=== PATIENT | male | born 1950 | race Caucasian/White ===

== ENCOUNTER 2019-02-06 11:19 | Inpatient (IN) | payer OTHER ==
[~2019-02-06] VITALS: Ht 175.3 cm; Wt 91.1 kg
[~2019-02-06 11:19] MED LIST changes: -CARV25 PO; +CARV3.125 PO; -ELIQUIS5 MG PO; -Hair, Skin & N1 EACH PO; -PANT40 PO
[2019-02-06] MEDS ORDERED: ELIQUIS5 MG PO (11:59)
[2019-02-06 12:17] LABS: International Normalized Ratio 1.05; Prothrombin Time Results 11.1 Sec (9.7-11.5)
[2019-02-06] MEDS ORDERED: Hair, Skin & N1 EACH PO (14:28)
[2019-02-06 15:26] LABS: Hematocrit 19.8 % (37.0-53.0); Hemoglobin 6.4 g/dL (13.5-17.5)
--- NOTE | 2019-02-06 16:11 | NUR ---
ARRIVAL TO UNIT Assumed care of pt upon arrival to unit at 1350. Telephone report received from Xiomara KERR prior to pt arrival. Pt transferred from ED gurney to ICU bed with SBA. Pt reports dizziness with activity, but not at rest. O2 sats 90% or greater RA. Pt denies nausea. No BM since arrival to unit.
--- NOTE | 2019-02-06 18:18 | NUR ---
SHIFT SUMMARY No acute changes since admission assessment. Pt has completed 2 units of plasma and 1 unit PRBCs, tolerating well. Dr Sonali Fine in to see pt this afternoon. Provider aware of most recent H&H results. Plan to transfuse additional unit PRBCs. Protonix gtt infusing. D5 1/2 NS with 20 meq K+ not infusing until completion of blood due to low EF on most recent echocardiogram. Pt remains on room air. Lungs clear to auscultation. Will continue to closely monitor until care handoff and bedside report with oncoming RN.
--- NOTE | 2019-02-06 22:46 | NUR ---
MD CANALES AT BEDSIDE W/ ORDERS FOR PT TO HAVE CLEAR LIQUIDS ONLY AT THIS TIME AND FOR BREAKFAST TOMORROW AM. AFTER BREAKFAST PT TO HAVE WATER AND ICE ONLY UNTIL NPO @ 1300 FOR POTENTIAL SCOPE.
[2019-02-07 04:27] LABS: Hematocrit 25.5 % (37.0-53.0); Hemoglobin 8.6 g/dL (13.5-17.5)
[2019-02-07 04:28] LABS: BASOPHILS ABSOLUTE AUTO 0.03 K/mm3 (0.00-0.23); BASOPHILS PERCENT AUTO 1 % (0-2); EOSINOPHILS ABSOLUTE AUTO 0.28 K/mm3 (0.00-0.68); EOSINOPHILS PERCENT AUTO 5 % (0-6); Hematocrit 25.5 % (37.0-53.0); Hemoglobin 8.5 g/dL (13.5-17.5); IMMATURE GRAN ABSOLUTE AUTO 0.08 K/mm3 (0.00-0.10); IMMATURE GRAN PERCENT AUTO 1 % (0-1); LYMPHOCYTES ABSOLUTE AUTO 1.49 K/mm3 (0.84-5.20); LYMPHOCYTES PERCENT AUTO 24 % (21-46); MONOCYTES ABSOLUTE AUTO 0.64 K/mm3 (0.16-1.47); MONOCYTES PERCENT AUTO 10 % (4-13); Mean Corpuscular HGB 32.3 pg (26.0-34.0); Mean Corpuscular HGB Conc 33.3 g/dL (31.5-36.5); Mean Corpuscular Volume 97 fL (80-100); Mean Platelet Volume 9.7 fL (9.1-12.4); NEUTROPHILS ABSOLUTE AUTO 3.76 K/mm3 (1.96-9.15); NEUTROPHILS PERCENT AUTO 60 % (41-73); Platelet Count 150 K/mm3 (150-400); RDW Coefficient Variation 15.8 % (11.7-14.2); Red Blood Cell Count 2.63 M/mm3 (4.30-5.90); White Blood Cell Count 6.28 K/mm3 (4.00-11.30)
[2019-02-07 04:34] LABS: Alanine Aminotransfer (ALT/SGP 22 U/L (12-78); Albumin/Globulin Ratio 1.1 (0.8-1.8); Alk Phos 66 U/L (50-136); Anion Gap 5 mmol/L (6-16); Aspartate Aminotrans (AST/SGOT 15 U/L (12-37); Bilirubin, Total 1.2 mg/dL (0.1-1.0); Blood Urea Nitrogen 21 mg/dL (8-24); Bun/Creatinine Ratio 24.5 (12.0-20.0); CO2, Blood 26 mmol/L (21-32); Chloride, Blood 112 mmol/L (98-108); Creatinine, Blood 0.86 mg/dL (0.60-1.20); Globulin, Blood 2.8 g/dL (2.2-4.0); Glomerular Filtration Rate >60 (60-); Glucose, Blood 86 mg/dL (70-99); Sodium, Blood 143 mmol/L (136-145); Total Protein, Blood 5.8 g/dL (6.4-8.2)
--- NOTE | 2019-02-07 05:32 | NUR ---
SHIFT SUMMARY PT A&0 X4, CALM AND COOPERATIVE. PT DENIES BLOODY BM THIS SHIFT. VSS. MONITOR SHOWS SB/NSR, HR 45-70. LUNG SOUNDS CLEAR, SPO2 > 92% ON RA. PROTONIX GTT INFUSING PER ORDERS. 1 UNIT PRBC'S AND 2 UNITS FFP ADMINISTERED THIS SHIFT W/ PT TOLERATING WELL. MD CANALES IN TO SEE PT THIS SHIFT W/ INSTRUCTIONS FOR PT TO BE CLEAR LIQUIDS ONLY NOW AND AT BREAKFAST FOLLOWED BY WATER AND ICE CHIPS ONLY AFTER BREAKFAST, AND NPO @ 1300 FOR SCOPE 02/07/19. PT IN BED W/ CALL LIGHT IN REACH ON BEDREST W/ SBA TO BSC. PT IN BED T/O SHIFT, USING URINAL. WILL CONTINUE TO MONITOR AND PROVIDE CARE UNTIL REPORT OFF TO DAY SHIFT RN.
--- NOTE | 2019-02-07 09:06 | NUR ---
PT AWAKENED EASILY AND IS A/O. PT DENIES PAIN OR DISTRESS JUST TIRED BACK FROM BEING IN THE BED. PT EXPRESSES NO SIGNS OF N/V OR STOOLING AT ALL SENCE HE CAME IN TO THE HOSPITAL. NEW IV REQUIRED AND CHANDGED TO RFA. PT FULLY AWARE AND REMINDED OF SCOPE AND PO STATUS.
[2019-02-07 10:23] LABS: Hematocrit 26.1 % (37.0-53.0); Hemoglobin 8.6 g/dL (13.5-17.5)
--- NOTE | 2019-02-07 12:25 | NUR ---
PT RESTING QUIETLY. VSS. SOME ARRYTHMIAS NOTED WHILE PT SLEEPING W/O ANY SYMPTOMS. PT IS TO BE NPO AFTER 1300.
[2019-02-07 16:44] LABS: Hematocrit 25.4 % (37.0-53.0); Hemoglobin 8.4 g/dL (13.5-17.5)
--- NOTE | 2019-02-07 17:24 | NUR ---
1710 DAY SURG. ON TO SET UP AND FOR ENDOSCOPE. PT HAS BEEN NPO FROM 1300 ON. VS HAVE BEEN STABLE NOTED.
--- NOTE | 2019-02-07 17:30 | NUR ---
02/07/19 [address] MACKENZIE
--- NOTE | 2019-02-07 18:35 | NUR ---
PT EGD COMPLETED AT 1750. PT VS STABLE. PROTONIX IV D/C. D51/2 20K AT 100ML TO COMPLETE. PT NOTES SOME ABD PRESSURE BUT LESS WITH PASSING OF GAS. PT IS A/O AND TOLERATED WELL OTHERWISE.
--- NOTE | 2019-02-08 05:58 | NUR ---
SHIFT SUMMARY PT HAS REMAINED AOX4 THROUGHOUT SHIFT. VSS. PLEASANT AND COOPERATIVE WITH CARE. PT CONTINUES TO USE URINAL INDEPENDENTLY AT THE BEDSIDE AND TOILET WITH STANDBY ASSISTANCE. PT HAS NO REPORTS OF DARK STOOLS THROUGHOUT THE NIGHT. DENIES PAIN. NO S/SX OF BLEEDING NOTED. PT HAS RESTED THROUGHOUT MUCH OF THE NIGHT, WAKING EASILY FOR CARE. NO OTHER CHANGES NOTED FROM INITIAL ASSESSMENT. WILL CONTINUE TO MONITOR AND REPORT TO ONCOMING SHIFT RN. BED IN LOW POSITION, CALL LIGHT IN REACH.
[2019-02-08 07:47] LABS: BASOPHILS ABSOLUTE AUTO 0.04 K/mm3 (0.00-0.23); BASOPHILS PERCENT AUTO 1 % (0-2); EOSINOPHILS ABSOLUTE AUTO 0.31 K/mm3 (0.00-0.68); EOSINOPHILS PERCENT AUTO 5 % (0-6); Hematocrit 24.2 % (37.0-53.0); IMMATURE GRAN ABSOLUTE AUTO 0.08 K/mm3 (0.00-0.10); IMMATURE GRAN PERCENT AUTO 1 % (0-1); LYMPHOCYTES ABSOLUTE AUTO 1.43 K/mm3 (0.84-5.20); LYMPHOCYTES PERCENT AUTO 22 % (21-46); MONOCYTES ABSOLUTE AUTO 0.57 K/mm3 (0.16-1.47); MONOCYTES PERCENT AUTO 9 % (4-13); Mean Corpuscular HGB 32.7 pg (26.0-34.0); Mean Corpuscular HGB Conc 33.1 g/dL (31.5-36.5); Mean Corpuscular Volume 99 fL (80-100); Mean Platelet Volume 9.4 fL (9.1-12.4); NEUTROPHILS ABSOLUTE AUTO 4.18 K/mm3 (1.96-9.15); NEUTROPHILS PERCENT AUTO 63 % (41-73); NRBC ABSOLUTE 0.02 K/mm3 (0.00-0.02); NRBC Auto 0.3 /100 WBC (0.0-0.2); Platelet Count 173 K/mm3 (150-400); RDW Coefficient Variation 15.9 % (11.7-14.2); RDW Standard Deviation 55.2 fL (35.1-46.3); Red Blood Cell Count 2.45 M/mm3 (4.30-5.90); White Blood Cell Count 6.61 K/mm3 (4.00-11.30)
[2019-02-08 08:09] LABS: Anion Gap 4 mmol/L (6-16); Blood Urea Nitrogen 14 mg/dL (8-24); Bun/Creatinine Ratio 16.8 (12.0-20.0); CO2, Blood 27 mmol/L (21-32); Chloride, Blood 111 mmol/L (98-108); Creatinine, Blood 0.83 mg/dL (0.60-1.20); Glomerular Filtration Rate >60 (60-); Glucose, Blood 109 mg/dL (70-99); Potassium, Blood 4.3 mmol/L (3.5-5.5); Sodium, Blood 142 mmol/L (136-145)
--- NOTE | 2019-02-08 10:28 | NUR ---
PT DENIES PAIN OR ANY EVIDENCE OF GI BLEEDING LAST NOC. PT VSS. TOLERATING PO MEDS AND LIQUIDS W/O N/V OR DISTRESS. IV SL.
[2019-02-08] MEDS ORDERED: PANT40 PO (13:54)
--- NOTE | 2019-02-08 16:05 | NUR ---
PT DISCHARGE TO [facility] VIA W/C. INSTRUCTION, RX AND F/U APPOINTMENT INSTRUCTIONS GIVEN. IV REMOVED INTACT AND PT W/O CURRNET S/S. LATE ENTRY: PT HAD RED BLOOD NOTED ON TP WITH SOME OLD BLACK/GREEN STOOL. DR CANALES CALLED AND AWARE W/O ORDER CHANGE AND WILL CONTINUE DISCHARGE PROCESS.
== END 2019-02-08 16:00 | disposition home or self-care (01) | DRG 379 ==
LOC: ER 11:19 → ICUW 11:20
PROVIDERS: Emergency Medicine; Family Medicine; ADMIT Family Medicine
PROC: 30233N1 Transfusion of Nonautologous Red Blood Cells into Peripheral Vein, Percutaneous Approach (ICD-10-PCS; principal; 2019-02-06)
PROC: 0DJ08ZZ Inspection of Upper Intestinal Tract, Via Natural or Artificial Opening Endoscopic (ICD-10-PCS; 2019-02-07)
DX: K92.2 Gastrointestinal hemorrhage, unspecified (principal); I25.10 Atherosclerotic heart disease of native coronary artery without angina pectoris; I25.5 Ischemic cardiomyopathy; I10 Essential (primary) hypertension; E78.5 Hyperlipidemia, unspecified; Z79.82 Long term (current) use of aspirin; I25.2 Old myocardial infarction; Z95.5 Presence of coronary angioplasty implant and graft; Z87.891 Personal history of nicotine dependence; D12.6 Benign neoplasm of colon, unspecified; K44.9 Diaphragmatic hernia without obstruction or gangrene; I48.0 Paroxysmal atrial fibrillation; T39.015A Adverse effect of aspirin, initial encounter; Y92.9 Unspecified place or not applicable; D64.9 Anemia, unspecified
CPT/HCPCS: 36415; 36430; 80048; 80053; 82272; 85014; 85018; 85025; 85610; 85730; 86850; 86900; 86901; 86923; 93005; 93010; 99285-25; C9113; J2704; J7120; P9016; P9059

== ENCOUNTER → 2019-02-06 | Outpatient (CLI) | payer OTHER ==
[~2019-02-06] MED LIST: ASCO500 PO; ATOR40TA PO; B-12500 MCG PO; CARV25 PO; ELIQUIS5 MG PO; FOLI1 PO; Ferrous Sulfat325 M2 PO; Hair, Skin & N1 EACH PO; LISI20 PO; LO-DOSE ASPIRIN81 MG PO; PANT40 PO; XARELTO20 MG PO
[2019-02-06 10:22] LABS: BASOPHILS ABSOLUTE AUTO 0.06 K/mm3 (0.00-0.23); BASOPHILS PERCENT AUTO 1 % (0-2); EOSINOPHILS ABSOLUTE AUTO 0.48 K/mm3 (0.00-0.68); EOSINOPHILS PERCENT AUTO 5 % (0-6); Hematocrit 20.6 % (37.0-53.0); Hemoglobin 7.1 g/dL (13.5-17.5); IMMATURE GRAN ABSOLUTE AUTO 0.14 K/mm3 (0.00-0.10); IMMATURE GRAN PERCENT AUTO 1 % (0-1); LYMPHOCYTES ABSOLUTE AUTO 1.84 K/mm3 (0.84-5.20); LYMPHOCYTES PERCENT AUTO 18 % (21-46); MONOCYTES ABSOLUTE AUTO 0.73 K/mm3 (0.16-1.47); MONOCYTES PERCENT AUTO 7 % (4-13); Mean Corpuscular HGB 33.5 pg (26.0-34.0); Mean Corpuscular HGB Conc 34.5 g/dL (31.5-36.5); Mean Corpuscular Volume 97 fL (80-100); Mean Platelet Volume 10.2 fL (9.1-12.4); NEUTROPHILS ABSOLUTE AUTO 6.81 K/mm3 (1.96-9.15); NEUTROPHILS PERCENT AUTO 68 % (41-73); Platelet Count 207 K/mm3 (150-400); RDW Standard Deviation 47.8 fL (35.1-46.3); Red Blood Cell Count 2.12 M/mm3 (4.30-5.90); White Blood Cell Count 10.06 K/mm3 (4.00-11.30)
[2019-02-06 10:36] LABS: Alanine Aminotransfer (ALT/SGP 22 U/L (12-78); Alk Phos 67 U/L (40-126); Anion Gap 8 mmol/L (6-16); Aspartate Aminotrans (AST/SGOT 17 U/L (12-37); Bilirubin, Total 0.4 mg/dL (0.1-1.0); Blood Urea Nitrogen 33 mg/dL (8-24); Bun/Creatinine Ratio 29.2 (12.0-20.0); CO2, Blood 23 mmol/L (21-32); Calcium, Blood 8.3 mg/dL (8.5-10.1); Chloride, Blood 105 mmol/L (98-108); Creatinine, Blood 1.13 mg/dL (0.60-1.20); Globulin, Blood 2.9 g/dL (2.2-4.0); Glomerular Filtration Rate >60 (60-); Glucose, Blood 110 mg/dL (70-99); Potassium, Blood 4.2 mmol/L (3.5-5.5); Sodium, Blood 136 mmol/L (136-145); Total Protein, Blood 5.9 g/dL (6.4-8.2)
[2019-02-06 10:40] LABS: Troponin I <0.017 ng/mL (0.000-0.040)
== END | disposition home or self-care (01) ==
LOC: LAB SHORT 10:17 → LAB EV 10:17
PROVIDERS: Family Medicine
DX: I95.9 Hypotension, unspecified (principal)
CPT/HCPCS: 80053; 84484; 85025

== ENCOUNTER 2019-02-09 16:27 | Inpatient (IN) | payer OTHER ==
[~2019-02-09] VITALS: Ht 175.3 cm; Wt 93.5 kg
[~2019-02-09 16:27] MED LIST changes: +ELIQUIS5 MG PO; +Hair, Skin & N1 EACH PO; +PANT40 PO
[2019-02-09 17:51] LABS: BASOPHILS ABSOLUTE AUTO 0.04 K/mm3 (0.00-0.23); BASOPHILS PERCENT AUTO 0 % (0-2); EOSINOPHILS ABSOLUTE AUTO 0.32 K/mm3 (0.00-0.68); EOSINOPHILS PERCENT AUTO 3 % (0-6); Hematocrit 22.2 % (37.0-53.0); Hemoglobin 7.1 g/dL (13.5-17.5); IMMATURE GRAN ABSOLUTE AUTO 0.09 K/mm3 (0.00-0.10); IMMATURE GRAN PERCENT AUTO 1 % (0-1); LYMPHOCYTES ABSOLUTE AUTO 1.21 K/mm3 (0.84-5.20); LYMPHOCYTES PERCENT AUTO 12 % (21-46); MONOCYTES ABSOLUTE AUTO 0.76 K/mm3 (0.16-1.47); MONOCYTES PERCENT AUTO 8 % (4-13); Mean Corpuscular HGB 32.3 pg (26.0-34.0); Mean Corpuscular Volume 101 fL (80-100); Mean Platelet Volume 10.3 fL (9.1-12.4); NEUTROPHILS ABSOLUTE AUTO 7.43 K/mm3 (1.96-9.15); NEUTROPHILS PERCENT AUTO 76 % (41-73); Platelet Count 235 K/mm3 (150-400); RDW Coefficient Variation 15.9 % (11.7-14.2); RDW Standard Deviation 56.3 fL (35.1-46.3); White Blood Cell Count 9.85 K/mm3 (4.00-11.30)
[2019-02-09 18:04] LABS: Alanine Aminotransfer (ALT/SGP 28 U/L (12-78); Albumin, Blood 3.1 g/dL (3.4-5.0); Albumin/Globulin Ratio 1.1 (0.8-1.8); Alk Phos 68 U/L (50-136); Anion Gap 8 mmol/L (6-16); Aspartate Aminotrans (AST/SGOT 18 U/L (12-37); Bilirubin, Total 0.4 mg/dL (0.1-1.0); Blood Urea Nitrogen 36 mg/dL (8-24); Bun/Creatinine Ratio 32.4 (12.0-20.0); CO2, Blood 24 mmol/L (21-32); Calcium, Blood 8.3 mg/dL (8.5-10.1); Chloride, Blood 107 mmol/L (98-108); Creatinine, Blood 1.11 mg/dL (0.60-1.20); Globulin, Blood 2.9 g/dL (2.2-4.0); Glomerular Filtration Rate >60 (60-); Glucose, Blood 120 mg/dL (70-99); Potassium, Blood 4.3 mmol/L (3.5-5.5); Sodium, Blood 139 mmol/L (136-145)
[2019-02-09 19:06] LABS: International Normalized Ratio 1.04
--- NOTE | 2019-02-09 22:30 | NUR ---
BLOOD TRANSFUSION COMPLETE PT TOLERATED WELL. NO S/SX OF ADVERSE EFFECTS. PT IS BRADYCARDIC AT 55, BUT PT WAS BRADYCARDIC UPON ARRIVAL TO ED. AFEBRILE. LUNG SOUNDS ARE CLEAR. OXYGEN SATURATIONS 99% ON RA. WILL PLACE ORDER TO REDRAW H&H IN ONE HOUR.
--- NOTE | 2019-02-09 23:10 | NUR ---
ASSUMED PT CARE AT 2025 PT ALERT AND ORIENTED UPON ARRIVAL TO UNIT; STAND PIVOT TRANSFER TO BED. FIRST UNIT OF PRBC'S TRANSFUSING UPON ARRIVAL WITH PROTONIX GTT AT 10MLS/HR. BP 99/49; HR 63; TEMP 98.4; RR 15; OXYGEN SATURATIONS 100% RA. LUNG SOUNDS CLEAR T/O. PT DENIES ANY ITCHINESS, SOB, WELL FEELING FLUSHED. BLOOD TRANSFUSING AT A RATE OF 150MLS/HR. CALL LIGHT LEFT WITHIN REACH; PT ABLE TO MAKE HIS NEEDS KNOWN.
[2019-02-09 23:46] LABS: Hematocrit 22.5 % (37.0-53.0); Hemoglobin 7.4 g/dL (13.5-17.5)
--- NOTE | 2019-02-10 00:31 | NUR ---
CALL TO DR. DAVIS UPDATED REGARDING HGB FROM 7.1 TO 7.4 AFTER ONE UNIT OF PRBC'S. UPDATED REGARDING BLOOD PRESSURES WITH MAP'S AROUND 60 AND HR LOW 40. NEW ORDERS TO TRANSFUSE ANOTHER UNIT OF PRBC'S.
[2019-02-10 05:00] LABS: BASOPHILS ABSOLUTE AUTO 0.03 K/mm3 (0.00-0.23); BASOPHILS PERCENT AUTO 0 % (0-2); EOSINOPHILS ABSOLUTE AUTO 0.46 K/mm3 (0.00-0.68); EOSINOPHILS PERCENT AUTO 6 % (0-6); Hematocrit 23.1 % (37.0-53.0); Hemoglobin 7.7 g/dL (13.5-17.5); IMMATURE GRAN ABSOLUTE AUTO 0.08 K/mm3 (0.00-0.10); IMMATURE GRAN PERCENT AUTO 1 % (0-1); LYMPHOCYTES PERCENT AUTO 19 % (21-46); MONOCYTES ABSOLUTE AUTO 0.58 K/mm3 (0.16-1.47); MONOCYTES PERCENT AUTO 8 % (4-13); Mean Corpuscular HGB 32.4 pg (26.0-34.0); Mean Corpuscular HGB Conc 33.3 g/dL (31.5-36.5); Mean Platelet Volume 9.6 fL (9.1-12.4); NEUTROPHILS ABSOLUTE AUTO 4.82 K/mm3 (1.96-9.15); NEUTROPHILS PERCENT AUTO 65 % (41-73); NRBC ABSOLUTE 0.02 K/mm3 (0.00-0.02); NRBC Auto 0.3 /100 WBC (0.0-0.2); Platelet Count 170 K/mm3 (150-400); RDW Coefficient Variation 15.6 % (11.7-14.2); RDW Standard Deviation 52.4 fL (35.1-46.3); Red Blood Cell Count 2.38 M/mm3 (4.30-5.90); White Blood Cell Count 7.37 K/mm3 (4.00-11.30)
[2019-02-10 05:01] LABS: Mean Corpuscular Volume 97 fL (80-100)
--- NOTE | 2019-02-10 05:07 | NUR ---
END OF SHIFT SUMMARY PT HAS REMAINED ALERT AND ORIENTED; ABLE TO COMMUNICATE NEEDS. PT HAS RECEIVED TWO UNITS OF PRBC'S; HGB WENT FROM 7.1 TO 7.7. NS INFUSING AT 75MLS/HR. PROTONIX GTT AT 10MLS/HR. BLOOD PRESSURES HAVE REMAINED ON THE LOW SIDE, BUT MAP'S HAVE BEEN 60 AND GREATER. HR HAS BEEN 60''-70'S WHEN AWAKE AND DROP TO THE 40-50'S WHEN SLEEPING; PT DID GET LOW 38; ASYMPTOMATIC. QT INTERVAL NOTED TO BE PROLONGED AT 0.46, BUT APPEARS THAT WAS HIS BASELINE FROM PRIOR ADMIT A COUPLE DAYS AGO. PT DENIES ANY PAIN OR DISCOMFORT TO ABDOMEN; HYPOACTIVE TONES NOTED. NO BM'S THIS SHIFT. PT ABLE TO REPOSITION SELF IN BED. CALL LIGHT AND PHONE LEFT WITHIN REACH. WILL CONTINUE TO MONITOR UNTIL REPORT IS HANDED OFF TO DAY RN.
[2019-02-10 05:17] LABS: Anion Gap 6 mmol/L (6-16); Blood Urea Nitrogen 28 mg/dL (8-24); Bun/Creatinine Ratio 32.5 (12.0-20.0); CO2, Blood 25 mmol/L (21-32); Calcium, Blood 7.6 mg/dL (8.5-10.1); Chloride, Blood 111 mmol/L (98-108); Creatinine, Blood 0.86 mg/dL (0.60-1.20); Glomerular Filtration Rate >60 (60-); Glucose, Blood 90 mg/dL (70-99); Magnesium, Blood 2.3 mg/dL (1.6-2.4); Potassium, Blood 3.9 mmol/L (3.5-5.5); Sodium, Blood 142 mmol/L (136-145)
--- NOTE | 2019-02-10 07:56 | NUR ---
INITIAL ASSESSMENT PATIENT ALERT AND ORIENTED, AFEBRILE. PATIENT DENIES PAIN OR DISCOMFORT AT THIS TIME. PATIENT SATTING 90% AND GREATER ON RA. LUNGS CLEAR T/O. PATIENT IN SB TO SR, HR 50S TO 60S. QT PROLONGATION NOTED. BP STABLE. SCDS IN PLACE. ABDOMEN MODERATELY DISTENDED, PATIENT STATES NORMAL. HYPERACTIVE BS NOTED. PATIENT ON CLEAR LIQUID DIET. WNL- PATIENT USING URINAL. PATIENT HAS TRACE EDEMA TO LOWER EXTREMITIES. NO SKIN ISSUES NOTED. NS INFUSING AT 75 MLS/ HOUR, PROTONIX INFUSING AT 10 MLS/ HOUR. BED LOW, CALL LIGHT IN REACH. WILL CONTINUE TO MONITOR PATIENT FREQUENTLY THROUGHOUT SHIFT.
--- NOTE | 2019-02-10 10:15 | NUR ---
PATIENT TAKEN TO [facility] FOR RED TAG STUDY. ON TELE.
--- NOTE | 2019-02-10 11:26 | NUR ---
PATIENT BACK FROM RED TAG STUDY.
--- NOTE | 2019-02-10 11:41 | NUR ---
PATIENT RESTING QUIETLY IN BED. PATIENT DENIES PAIN OR DISCOMFORT. PATIENT AFEBRILE. PATIENT REMAINS SATTING 90% AND GREATER ON RA. PATIENT REMAINS IN SB/ SR, HR 50S TO 60S WITH PROLONGED QT INTERVAL. BP STABLE. ABDOMEN REMAINS MODERATELY DISTENDED, SOFT, WITH HYPERACTIVE BS. PATIENT CURRENTLY NPO EXCEPT FOR MEDS PER DR. BURKS. PATIENT VOIDING INTO URINAL WITH NO PROBLEMS NOTED. NO CHANGE TO SKIN. PATIENT HAD RED TAG STUDY. NO OTHER ACUTE CHANGES TO NOTE ON AT THIS TIME. VISITOR IN ROOM WITH PATIENT AT THIS TIME. WILL CONTINUE TO MONITOR.
--- NOTE | 2019-02-10 14:25 | NUR ---
02/10/19 1424 Mu [place] Bite Block Placed3-LEAD EKG REVIEWED WITH PHYSICIAN PRIOR TO START OF PROCEDURE.Patient to ENDO 1History, Chart, Medications and Allergies reviewed before start of procedure.MONITOR INTACT WITH CONTINUOUS PULSE OXIMETRY AND INTERMITTENT BP.O2 VIA N/C INTACT THROUGHOUT SEDATION/PROCEDURE.See Anesthesia record
--- NOTE | 2019-02-10 16:34 | NUR ---
PATIENT RESTING IN BED QUIETLY. PATIENT AFEBRILE. PATIENT STATES THAT HE HAS BEEN HAVING GAS AND SOME ABDOMINAL DISCOMFORT SINCE SCOPE. PATIENT STATES THAT IT IS MANAGEABLE AT THIS TIME. PATIENT GIVEN PRN ZOFRAN OT FOR COMPLAINT OF NAUSEA. PATIENT REMAINS SATTING 90% AND GREATER ON RA. PATIENT IN SB, HR 40S TO 50S. BP STABLE. NO OTHER ACUTE CHANGES TO NOTE ON AT THIS TIME. WILL CONTINUE TO MONITOR.
--- NOTE | 2019-02-10 18:00 | NUR ---
SHIFT SUMMARY PATIENT REMAINED ALERT AND ORIENTED, AFEBRILE. PATIENT HAD NO COMPLAINTS OF PAIN UNTIL AFTER SCOPE, THEN COMPLAINED OF ABDOMINAL DISCOMFORT BUT STATED IT WAS MANAGEABLE. PATIENT SBA FOR COMPLAINTS OF DIZZINESS WITH STANDING. PATIENT REMAINED SATTING WELL ON RA. LUNGS CLEAR THROUGHOUT. PATIENT REMAINED SB TO SR, HR 40S TO 60S. BP ON SOFT SIDE DURING SCOPE, OTHERWISE STABLE. PATIENT HAD NO ACTIVE BLEEDING THIS SHIFT. PATIENT GIVEN PRN ZOFRAN OT FOR COMPLAINT OF NAUSEA AFTER SCOPE. WNL. NO CHANGE IN SKIN. NS KCL INFUSING AT 50 MLS/ HOUR. REPORT GIVEN TO ASSUMING PCU NURSE.
--- NOTE | 2019-02-10 18:35 | NUR ---
PT TRANSFERRED TO UNIT FROM ICU. PT ALERT AND ORIENTED. VS STABLE. PT ABLE TO TRANSFER TO BED WITH SBA. 02 SATS >90% ON RA. EGD DONE TODAY AND PT REPORTS MILD NAUSEA SINCE SCOPE. NS WITH KCL INFUSING PER ORDERS. WILL CONTINUE TO MONITOR AND REPORT TO ONCOMING RN. CALL LIGHT IN REACH.
[2019-02-10 19:49] LABS: Hematocrit 25.6 % (37.0-53.0); Hemoglobin 8.3 g/dL (13.5-17.5)
[2019-02-11 03:47] LABS: Hematocrit 21.9 % (37.0-53.0); Hemoglobin 7.1 g/dL (13.5-17.5)
[2019-02-11 03:57] LABS: Albumin, Blood 2.4 g/dL (3.4-5.0); Anion Gap 5 mmol/L (6-16); Blood Urea Nitrogen 18 mg/dL (8-24); Bun/Creatinine Ratio 22.2 (12.0-20.0); CO2, Blood 26 mmol/L (21-32); Calcium, Blood 7.5 mg/dL (8.5-10.1); Chloride, Blood 113 mmol/L (98-108); Creatinine, Blood 0.81 mg/dL (0.60-1.20); Glomerular Filtration Rate >60 (60-); Glucose, Blood 85 mg/dL (70-99); Phosphorus, Blood 3.3 mg/dL (2.5-4.9); Potassium, Blood 3.9 mmol/L (3.5-5.5); Sodium, Blood 144 mmol/L (136-145)
--- NOTE | 2019-02-11 05:35 | NUR ---
SHIFT SUMMARY LYING IN LOW FOWLERS WITH EYES CLOSED. RESTED WELL, STATES THAT HE FEELS BETTER. DENIES FURTHER NEEDS OR WANTS AT THIS TIME. SAFETY MEASURES IN PLACE. WILL GIVE HAND OFF TO ONCOMING SHIFT USING SBAR.
[2019-02-11 15:19] LABS: Hematocrit 26.9 % (37.0-53.0)
--- NOTE | 2019-02-11 19:25 | NUR ---
SHIFT SUMMARY PT RESTING IN BED THROUGHOUT THE DAY. VSS. ALERT AND ORIENTED X3. LUNG SOUNDS CLEAR, SINUS DENYS TO NSR RATE 50s-60s ON TELEMETRY. NUMBNESS TO BILATERAL FEET. PT RECEIVED 1 UNIT PRBC TODAY AND TOLERATED WELL. PT UP TO SIDE OF BED TO VOID, AMBULATED TO THE BATHROOM X1.
--- NOTE | 2019-02-11 19:45 | NUR ---
ASSUMED CARE PT. ALERT AND ORIENTED. ABLE TO REPOSITION SELF IN BED FOR COMFORT NEEDED. PT. VSS AT THIS TIME. PT. DENIES ANY PAIN OR DISCOMFORT. VSS. REFRESHMENTS AT BEDSIDE. CALL LIGHT IN REACH
[2019-02-11 20:22] LABS: Hemoglobin 8.7 g/dL (13.5-17.5)
[2019-02-12 05:25] LABS: Hematocrit 25.3 % (37.0-53.0); Hemoglobin 8.4 g/dL (13.5-17.5)
[2019-02-12 05:43] LABS: Albumin, Blood 2.5 g/dL (3.4-5.0); Anion Gap 5 mmol/L (6-16); Blood Urea Nitrogen 13 mg/dL (8-24); Bun/Creatinine Ratio 14.1 (12.0-20.0); CO2, Blood 27 mmol/L (21-32); Calcium, Blood 7.7 mg/dL (8.5-10.1); Chloride, Blood 110 mmol/L (98-108); Creatinine, Blood 0.92 mg/dL (0.60-1.20); Glomerular Filtration Rate >60 (60-); Glucose, Blood 89 mg/dL (70-99); Phosphorus, Blood 3.1 mg/dL (2.5-4.9); Sodium, Blood 142 mmol/L (136-145)
--- NOTE | 2019-02-12 05:49 | NUR ---
SHIFT SUMMARY PT SLEEPING T/O NIGHT. NO COMPLAINTS. NO ACUTE CHANGES T/O SHIFT. REPORT TO ONCOMING RN.
--- NOTE | 2019-02-12 10:22 | NUR ---
echocardiogram completed
[2019-02-12 14:30] LABS: Hematocrit 30.6 % (37.0-53.0); Hemoglobin 10.2 g/dL (13.5-17.5)
--- NOTE | 2019-02-12 19:41 | NUR ---
SHIFT SUMMARY PT RESTING IN BED THROUGHOUT THE DAY. VSS. ALERT AND ORIENTED X3. LUNG SOUNDS CLEAR, SINUS BRADYCARDIA TO NSR RATE 48-70s TODAY. TRACE EDEMA TO BLE. PT AMBULATED IN HALLWAY X2 TODAY AND TOLERATED WELL. DENIES PAIN AT THIS TIME. WILL CONTINUE TO MONITOR.
[2019-02-13 05:54] LABS: BASOPHILS ABSOLUTE AUTO 0.03 K/mm3 (0.00-0.23); BASOPHILS PERCENT AUTO 0 % (0-2); EOSINOPHILS ABSOLUTE AUTO 0.39 K/mm3 (0.00-0.68); EOSINOPHILS PERCENT AUTO 5 % (0-6); Hematocrit 27.3 % (37.0-53.0); Hemoglobin 9.1 g/dL (13.5-17.5); IMMATURE GRAN ABSOLUTE AUTO 0.02 K/mm3 (0.00-0.10); IMMATURE GRAN PERCENT AUTO 0 % (0-1); LYMPHOCYTES ABSOLUTE AUTO 1.32 K/mm3 (0.84-5.20); LYMPHOCYTES PERCENT AUTO 18 % (21-46); MONOCYTES ABSOLUTE AUTO 0.68 K/mm3 (0.16-1.47); MONOCYTES PERCENT AUTO 9 % (4-13); Mean Corpuscular HGB 32.4 pg (26.0-34.0); Mean Corpuscular HGB Conc 33.3 g/dL (31.5-36.5); Mean Corpuscular Volume 97 fL (80-100); Mean Platelet Volume 9.4 fL (9.1-12.4); NEUTROPHILS ABSOLUTE AUTO 5.01 K/mm3 (1.96-9.15); NEUTROPHILS PERCENT AUTO 67 % (41-73); Platelet Count 206 K/mm3 (150-400); RDW Coefficient Variation 15.1 % (11.7-14.2); RDW Standard Deviation 52.8 fL (35.1-46.3); Red Blood Cell Count 2.81 M/mm3 (4.30-5.90); White Blood Cell Count 7.45 K/mm3 (4.00-11.30)
--- NOTE | 2019-02-13 06:11 | NUR ---
SHIFT SUMMARY PT HAS REMAINED AOX4 THROUGHOUT SHIFT. VSS. PLEASANT AND COOPERATIVE WITH CARE. PT CONTINUES TO USE URINAL AT BEDSIDE INDEPENDENTLY. PT HAS DENIED BOWEL MOVEMENT THIS SHIFT. PT HAS RESTED WELL THROUGHOUT THE NIGHT, WAKING EASILY FOR CARE. PT HAS DENIED ABDOMINAL PAIN OR N/V. PT REQUESTING REMOVAL OF SCDS THIS AM AFTER WEARING THEM ALL NIGHT. PT EDUCATED ON VTE PREVENTION AND VERBALIZED UNDERSTANDING. NO OTHER CHANGES NOTED FROM INITIAL ASSESSMENT. WILL CONTINUE TO MONITOR AND REPORT TO ONCOMING SHIFT RN. BED IN LOW POSITION, CALL LIGHT IN REACH.
[2019-02-13 06:21] LABS: Albumin, Blood 2.6 g/dL (3.4-5.0); Anion Gap 4 mmol/L (6-16); Blood Urea Nitrogen 10 mg/dL (8-24); CO2, Blood 27 mmol/L (21-32); Chloride, Blood 109 mmol/L (98-108); Creatinine, Blood 0.83 mg/dL (0.60-1.20); Glomerular Filtration Rate >60 (60-); Glucose, Blood 93 mg/dL (70-99); Magnesium, Blood 2.3 mg/dL (1.6-2.4); Phosphorus, Blood 2.9 mg/dL (2.5-4.9); Sodium, Blood 140 mmol/L (136-145)
[2019-02-13 12:21] LABS: Hematocrit 30.3 % (37.0-53.0); Hemoglobin 9.8 g/dL (13.5-17.5)
[2019-02-13 16:01] LABS: Hematocrit 29.9 % (37.0-53.0); Hemoglobin 9.8 g/dL (13.5-17.5)
--- NOTE | 2019-02-13 16:28 | NUR ---
SHIFT SUMMARY PT RESTING IN BED THROUGHOUT THE DAY. VSS. ALERT AND ORIENTED X3. DENIES PAIN THROUGHOUT THE DAY. LUNG SOUNDS CLEAR, NSR RATE 72 ON TELEMETRY. TRACE EDEMA TO BLE, CHRONIC TINGLING TO BILATERAL FEET. PT AMBULATED INDEPENDENTLY AROUND UNIT WITHOUT PROBLEMS. PT TOLERATED REGULAR DIET WITH NO PAIN OR NAUSEA. WILL CONTINUE TO MONITOR.
[2019-02-13] MEDS ORDERED: PANT40 PO (18:05)
[2019-02-13] MEDS ORDERED: ENTRESTO 24 MG1 EACH PO (18:07)
--- NOTE | 2019-02-13 18:42 | NUR ---
DISCHARGE NOTE PT STABLE FOR DISCHARGE. POWERGLIDE REMOVED. DISCHARGE MEDICATIONS, DISCHARGE INSTRUCTIONS, AND MEDICATION EDUCATION PROVIDED TO PT. PT VERBALIZES UNDERSTANDING AND DENIES QUESTIONS. PT DISCHARGED VIA WHEELCHAIR TO WAITING CAR WITH BELONGINGS.
== END 2019-02-13 18:38 | disposition home or self-care (01) | DRG 378 ==
LOC: ER 16:27 → PCU 19:21 → ICUW 19:21 → ICUE 19:21 → UNDODEPER 21:13 → ICUE 02-10 17:03 → PCU 02-10 17:47
PROVIDERS: Emergency Medicine; Internal Medicine; Internal Medicine Gastroenterology; Nurse Practitioner Acute Care; ADMIT Internal Medicine
PROC: 30233N1 Transfusion of Nonautologous Red Blood Cells into Peripheral Vein, Percutaneous Approach (ICD-10-PCS; 2019-02-09)
PROC: 0D598ZZ Destruction of Duodenum, Via Natural or Artificial Opening Endoscopic (ICD-10-PCS; principal; 2019-02-10 14:30)
DX: K26.4 Chronic or unspecified duodenal ulcer with hemorrhage (principal); I50.22 Chronic systolic (congestive) heart failure; D62 Acute posthemorrhagic anemia; I25.10 Atherosclerotic heart disease of native coronary artery without angina pectoris; I25.5 Ischemic cardiomyopathy; I25.2 Old myocardial infarction; E78.5 Hyperlipidemia, unspecified; Z87.891 Personal history of nicotine dependence; I95.9 Hypotension, unspecified; I51.3 Intracardiac thrombosis, not elsewhere classified; E78.00 Pure hypercholesterolemia, unspecified; Z79.82 Long term (current) use of aspirin; I11.0 Hypertensive heart disease with heart failure
CPT/HCPCS: 36415; 36430; 78278; 80048; 80053; 80069; 82272; 83735; 83880; 85014; 85018; 85025; 85610; 85730; 86850; 86900; 86901; 86923; 93308; 93321; 96365; 99285-25; A9270; A9560; C1751; C9113; J1940; J2250; J2405; J2704; J3480; J7030; J7050; J7120; P9016

== ENCOUNTER 2019-10-09 05:43 | Day surgery (SDC) | payer OTHER ==
[~2019-10-09] VITALS: Ht 175.3 cm; Wt 93.0 kg
[~2019-10-09 05:43] MED LIST changes: +ENTRESTO 24 MG1 EACH PO
[2019-10-09] MEDS ORDERED: NITR.6SL SL (06:23)
[2019-10-09] MEDS ORDERED: ELIQUIS5 MG PO (06:23)
[2019-10-09] MEDS ORDERED: Aspir 8181 MG PO (09:01)
[2019-10-09] MEDS ORDERED: TICA90TA (09:01)
--- NOTE | 2019-10-09 14:04 | NUR ---
PT VERBALIZED UNDERSTANDING OF WRITTEN AND VERBAL D/C INST. TR BAND REMOVED FROM R WRIST. PUNCTURE AREA CLEANED WITH NS; CLOTH DOT DRNG PLACED; SPLINT REAPPLIED. IV REMOVED. PT TAKEN OUT OF THE [facility]ENTER VIA W/C.
== END 2019-10-09 14:20 | disposition home or self-care (01) ==
LOC: MHTC 05:43
PROC: B206YZZ Plain Radiography of Right and Left Heart using Other Contrast (ICD-10-PCS; principal; 2019-10-09)
PROC: 4A023N8 Measurement of Cardiac Sampling and Pressure, Bilateral, Percutaneous Approach (ICD-10-PCS; principal; 2019-10-09)
PROC: B201YZZ Plain Radiography of Multiple Coronary Arteries using Other Contrast (ICD-10-PCS; principal; 2019-10-09)
DX: I25.10 Atherosclerotic heart disease of native coronary artery without angina pectoris (principal); I25.5 Ischemic cardiomyopathy; T82.855A Stenosis of coronary artery stent, initial encounter; Y83.1 Surgical operation with implant of artificial internal device as the cause of abnormal reaction of the patient, or of later complication, without mention of misadventure at the time of the procedure; I25.2 Old myocardial infarction; E66.3 Overweight; F17.210 Nicotine dependence, cigarettes, uncomplicated; Z79.899 Other long term (current) drug therapy; Z79.01 Long term (current) use of anticoagulants; Z68.30 Body mass index [BMI] 30.0-30.9, adult
CPT/HCPCS: 85347; 93460; 99152; 99153; C1725; C1769; C1874; C1887; C1894; C9600; J1644; J2250; J3010; J7030; Q9967

== ENCOUNTER 2020-11-27 12:15 | Emergency (ER) | payer OTHER ==
[~2020-11-27] VITALS: Ht 175.3 cm; Wt 93.0 kg
[~2020-11-27 12:15] MED LIST changes: +Aspir 8181 MG PO; +NITR.6SL SL; +TICA90TA
[2020-11-27] MEDS ORDERED: ENTRESTO 97 MG1 EACH PO (15:36)
[2020-11-27] MEDS ORDERED: CLOP75 PO (15:38)
[2020-11-27] MEDS ORDERED: Ultram50 MG PO (18:04)
== END 2020-11-27 18:15 | disposition home or self-care (01) ==
LOC: ER 12:15
DX: S82.841A Displaced bimalleolar fracture of right lower leg, initial encounter for closed fracture (principal); I25.10 Atherosclerotic heart disease of native coronary artery without angina pectoris; I10 Essential (primary) hypertension; E78.5 Hyperlipidemia, unspecified; Z79.02 Long term (current) use of antithrombotics/antiplatelets; Z79.01 Long term (current) use of anticoagulants; W01.0XXA Fall on same level from slipping, tripping and stumbling without subsequent striking against object, initial encounter
CPT/HCPCS: 27810; 73600; 93005; 93010; 99152; 99283-25; J2704; J7030

== ENCOUNTER 2020-12-06 08:48 | Day surgery (SDC) | payer OTHER ==
[~2020-12-06] VITALS: Ht 175.3 cm; Wt 91.7 kg
[~2020-12-06 08:48] MED LIST changes: +CLOP75 PO; +ENTRESTO 97 MG1 EACH PO; +Ultram50 MG PO
[2020-12-06] MEDS ORDERED: MULTIPLE VITAM1 EACH PO (09:06)
--- NOTE | 2020-12-06 09:26 | NUR ---
History, Chart, Medications and Allergies reviewed before start of procedure. Patient confirms NPO status and agrees with scheduled surgery. PATIENT'S RLE IN SPLINT AND PLACED ON PILLOW TO ELEVATE. SPLINT LEFT INTACT, SO NO CLIP PREP OR CHLORHEXIDINE PREP DONE IN PRE-OP.
--- NOTE | 2020-12-06 12:25 | NUR ---
RLE ELEVATED ON PILLOW. YOGI WRAP INTACT WITH TOES VISILBE. PATIENT DENIES NUMBNESS OR TINGLING TO RLE. TOES PINK IN COLOR WITH CAP REFILL GREATER THAN 3 SECONDS, BUT EQUAL TO LLE WHEN COMPARED. PATEINT ABLE TO WIGGLE ALL TOES AND HAS SENSITIVITY TO TOUCH TO ALL TOES.
--- NOTE | 2020-12-06 12:32 | NUR ---
DRINKING APPLE JUICE.
--- NOTE | 2020-12-06 12:33 | NUR ---
ENCOURAGED PATIENT TO COUGH AND DEEP BREATH TO IMPROVE OXYGEN SATURATION. BIOX 90% ON RA. WILL CONTINUE TO MONIOTR.
--- NOTE | 2020-12-06 13:42 | NUR ---
Discharge instructions reviewed with patient. Patient verbalizes understanding. Copy given to patient to take home. Patient's prescription was given to his friend, Gino, to fill at [facility] in [place]. Gino is also patient's ride home. Patient states that his right ankle pain is down to 3/10, but he is worried about the pain when he is going home and requests additional pain pill before leaving.
--- NOTE | 2020-12-06 13:46 | NUR ---
NO CHANGE TO NEURO CHECK. RLE TOES HAVE SENSATION TO TOUCH. ABLE TO WIGGLE ALL TOES. DENIES NUMBNESS AND TINGLING.
--- NOTE | 2020-12-06 13:54 | NUR ---
ICE PACK TO RIGHT ANKLE. PATIENT STATES HE WOULD LIKE TO WAIT A LITTLE WHILE LONGER TO GET DRESSED SO THAT HIS PAIN MEDICINE HAS MORE TIME TO WORK. REPORT GIVEN TO KATYA DOMINGUEZ RN.
== END 2020-12-06 14:10 | disposition home or self-care (01) ==
LOC: ORSCMMR 08:48 → ORD 13:30 → ORSCMMR 14:10
PROVIDERS: Orthopaedic Surgery
PROC: 0QSJ04Z Reposition Right Fibula with Internal Fixation Device, Open Approach (ICD-10-PCS; principal; 2020-12-06 09:30)
DX: S82.61XA Displaced fracture of lateral malleolus of right fibula, initial encounter for closed fracture (principal); I25.2 Old myocardial infarction; F17.210 Nicotine dependence, cigarettes, uncomplicated; Z79.899 Other long term (current) drug therapy
CPT/HCPCS: A9270; C1713; J0171; J0461; J0690; J1100; J2250; J2370; J2405; J2704; J3010; J7120

== ENCOUNTER 2023-01-08 08:27 | Day surgery (SDC) | payer OTHER ==
[~2023-01-08] VITALS: Ht 175.3 cm; Wt 103.8 kg
[~2023-01-08 08:27] MED LIST changes: +MULTIPLE VITAM1 EACH PO
--- NOTE | 2023-01-08 11:20 | NUR ---
01/08/23 1120 BOONE GUZMAN CORRECTION- IV IN LEFT HAND
[2023-01-08 11:24] VITALS: BP 145/77
== END 2023-01-08 11:10 | disposition home or self-care (01) ==
LOC: ORSCSDS 08:27
PROVIDERS: Surgery
PROC: 0DBM8ZX Excision of Descending Colon, Via Natural or Artificial Opening Endoscopic, Diagnostic (ICD-10-PCS; principal; 2023-01-08 09:45)
PROC: 0DBN8ZX Excision of Sigmoid Colon, Via Natural or Artificial Opening Endoscopic, Diagnostic (ICD-10-PCS; principal; 2023-01-08 09:45)
DX: Z12.11 Encounter for screening for malignant neoplasm of colon (principal); Z86.010 Personal history of colon polyps; D12.4 Benign neoplasm of descending colon; D12.5 Benign neoplasm of sigmoid colon; K57.30 Diverticulosis of large intestine without perforation or abscess without bleeding; I25.10 Atherosclerotic heart disease of native coronary artery without angina pectoris; F17.210 Nicotine dependence, cigarettes, uncomplicated; I25.2 Old myocardial infarction; I50.9 Heart failure, unspecified; I27.20 Pulmonary hypertension, unspecified; Z79.899 Other long term (current) drug therapy
CPT/HCPCS: 88305; J2704; J7120